=== PATIENT | male | born 1945 | race Caucasian/White ===

== ENCOUNTER 2019-08-18 20:09 | Inpatient (IN) | payer MEDICARE, OTHER ==
[~2019-08-18] VITALS: Ht 165.1 cm; Wt 88.9 kg
--- NOTE | 2019-08-18 21:08 | NUR ---
PATIENT CAME FROM [facility] TOWARDS STAFF. PER REPORT, PATIENT WAS PULLING STAFF'S HAIR, SCRATCHING, AND PUNCHING STAFF. PT IS ABLE TO SPEAK, BUT DIFFICULT TO UNDERSTAND. ALERT AND ORIENTED. NO SOB. BREATHING EVENLY AND UNLABORED.
--- NOTE | 2019-08-18 21:09 | NUR ---
PATIENT INTAKE COORDINATOR AT BEDSIDE FOR BLOOD COLLECTION
--- NOTE | 2019-08-18 21:13 | NUR ---
PT UNABLE TO PROVIDE URINE AT THIS TIME.
[2019-08-18 21:21] LABS: BASOPHILS # (AUTO) 0.2 /CMM (0.0-0.2); BASOPHILS % (AUTO) 1.2 % (0.0-2.0); EOSINOPHILS % (AUTO) 1.5 % (0.0-6.0); HEMATOCRIT 40 % (39-51); HEMOGLOBIN 13.1 g/dL (13.5-17.5); LYMPHOCYTES % (AUTO) 23.4 % (20.0-44.0); MEAN CORPUSCULAR HGB CONC 33 g/dl (31.0-36.0); MEAN CORPUSCULAR VOLUME 92 fL (80-96); MONOCYTES # (AUTO) 0.8 /CMM (0.1-1.30); MONOCYTES % (AUTO) 6.2 % (2.0-12.0); NEUTROPHILS # (AUTO) 8.6 /CMM (1.8-8.9); NEUTROPHILS % (AUTO) 67.7 % (43.0-81.0); PLATELET COUNT (AUTO) 355 /CMM (150-450); RED BLOOD CELL COUNT(AUTO) 4.29 MIL/uL (4.5-6.0); WHITE BLOOD COUNT (AUTO) 12.7 K/uL (4.3-11.0)
[2019-08-18 21:29] LABS: CALCIUM, SERUM 9.9 mg/dL (8.5-10.1); CARBON DIOXIDE 23 mmol/L (21-32); CHLORIDE 102 mmol/L (98-107); CREATININE 1.2 mg/dL (0.6-1.3); GLUCOSE 190 mg/dL (74-106); SODIUM SERUM 137 mmol/L (136-145); UREA NITROGEN, BLOOD 26 mg/dL (7-18)
[2019-08-18 21:45] LABS: ALANINE AMINOTRANSFERASE 19 U/L (12-78); ALBUMIN 3.8 g/dL (3.4-5.0); ALCOHOL, BLOOD < 3 mg/dL (0-0); ALKALINE PHOSPHATASE 93 U/L (46-116); ASPARTATE AMINOTRANSFERASE 13 U/L (15-37); BILIRUBIN,DIRECT 0.1 mg/dL (0.0-0.2); BILIRUBIN,TOTAL 0.3 mg/dL (0.2-1.0); TOTAL PROTEIN, SERUM 8.1 g/dL (6.4-8.2)
[2019-08-18 21:48] LABS: ACETAMINOPHEN < 2 ug/ml (10-30); SALICYLATE 1.7 mg/dL (2.8-20.0)
[2019-08-18 22:00] LABS: APPEARANCE,URINE Clear (CLEAR); BILIRUBIN,URINE Negative (NEGATIVE); BLOOD, URINE Negative Ery/uL (NEGATIVE); COLOR,URINE Yellow (YELLOW); KETONES,URINE 15 (NEGATIVE); LEUKOCYTE ESTERASE ,URINE Negative (NEGATIVE); NITRITE, URINE Positive (NEGATIVE); PH,URINE 5.5 (5.0-8.0); PROTEIN,URINE 100 mg/dl (NEGATIVE); UGLUCOSE Negative (NEGATIVE); UROBILINOGEN,URINE 0.2 EU/dL (0.2)
[2019-08-18 22:05] LABS: BACTERIA,URINE Few /HPF (None Seen); RBC,URINE NONE SEEN /HPF (0-2); SQUAMOUS EPITHELIAL CELL,UR Few /HPF (None Seen); WBC,URINE 0-2 /HPF (0-3)
[2019-08-18] MEDS ORDERED: CEFTRIAXONE 1GM BAG (ER ONLY) 1 GM/50 ML PIGGYBACK IV ONE (22:30)
--- NOTE | 2019-08-18 22:41 | NUR ---
ATTEMPTED MRSA SWAB ON PT W/ RN AND ADMITTING FOR TRANSLATION; PT REFUSED. DR BIANCHI
[2019-08-18] MEDS ORDERED: CEFTRIAXONE 1 G VIAL ONE (22:44)
[2019-08-18] MEDS ORDERED: LIDOCAINE /MPF 1% VIAL 5 ML VIAL ONE (22:44)
[2019-08-18] MEDS ORDERED: CEFTRIAXONE 1 G VIAL IM STA (22:57)
--- NOTE | 2019-08-18 23:05 | NUR ---
report given to Dave MEEKS for manny.
[2019-08-18] MEDS ORDERED: OMEG1CAP55 PO (23:08)
[2019-08-18] MEDS ORDERED: FOLI0.8T2 PO (23:09)
[2019-08-18] MEDS ORDERED: LISI10TA5 PO (23:57)
[2019-08-18] MEDS ORDERED: INSU100I30 SQ (23:58)
[2019-08-18] MEDS ORDERED: MELA1TAB15 PO (23:59)
[2019-08-19] MEDS ORDERED: MAGNESIUM HYDROXIDE 30 ML UDC PO PRN
[2019-08-19] MEDS ORDERED: TEMAZEPAM 7.5 MG CAPSULE PO PRN
[2019-08-19] MEDS ORDERED: ACETAMINOPHEN 325 MG TABLET PO PRN
[2019-08-19] MEDS ORDERED: MAG HYDROX/AL HYDROX/SIMETH 30 ML UDC PO PRN
[2019-08-19] MEDS ORDERED: DEXT15DR6 OP
[2019-08-19] MEDS ORDERED: clonazePAM 0.5 MG TABLET PO PRN
[2019-08-19] MEDS ORDERED: TYL2T MC (00:13)
[2019-08-19] MEDS ORDERED: CYAN100071 PO (00:27)
[2019-08-19] MEDS ORDERED: BLOOD SUGAR DIAGNOSTIC 1 EACH STRIP IN ONE (00:30)
[2019-08-19] MEDS ORDERED: POLY17PO4 PO (00:34)
[2019-08-19] MEDS ORDERED: DOCU100C36 PO (00:35)
[2019-08-19] MEDS ORDERED: METF-442 PO (00:40)
[2019-08-19] MEDS ORDERED: INSULIN REGULAR, HUMAN 100 UNIT/ML 3 ML VIAL SQ PRN (01:00)
[2019-08-19] MEDS ORDERED: DEXTROSE 50%-WATER 50 ML DISP.SYRIN IV PRN (01:00)
--- NOTE | 2019-08-19 04:51 | NUR ---
ADMITTED THIS 74 YEARS OLD MALE FROM [facility] PATIENT IS ALERT, ORIENTED, X 2 AMBULATORY WITH ASSIST DENIES ANY PAIN OR DISCOMFORT AT THIS TIME, PATIENT WAS PLACED ON 5150 HOLD DUE TO DANGERS TO OTHERS, SCRATCHING THE STAFF AND PULLING THE HAIR OF THE STAFF, PATIENT IS UNDER CARE OF DR. LOPEZ SKIN ASSESSMENT IS DONE SKIN IS INTACT NO OPEN SKIN NOTED, PATIENT REFUSED TO SIGN OF CONSENT PAPER ADVISEMENT EXPLAIN AND SERVE TO THE PATIENT WITH HOSPITAL HANDBOOK, BED ALARM IS ON, SIDE RAILS ARE UP FOR THE SAFETY WILL CONTINUES TO MONITOR THE PATIENT FOR SAFETY AND FALL.
[2019-08-19 07:21] LABS: BASOPHILS % (AUTO) 0.4 % (0.0-2.0); EOSINOPHILS % (AUTO) 2.4 % (0.0-6.0); HEMATOCRIT 40 % (39-51); HEMOGLOBIN 13.3 g/dL (13.5-17.5); LYMPHOCYTES # (AUTO) 2.9 /CMM (0.8-4.8); LYMPHOCYTES % (AUTO) 29.4 % (20.0-44.0); MEAN CORPUSCULAR HGB CONC 34 g/dl (31.0-36.0); MEAN CORPUSCULAR VOLUME 91 fL (80-96); MONOCYTES # (AUTO) 0.6 /CMM (0.1-1.30); MONOCYTES % (AUTO) 6.4 % (2.0-12.0); NEUTROPHILS % (AUTO) 61.4 % (43.0-81.0); PLATELET COUNT (AUTO) 339 /CMM (150-450); RED BLOOD CELL COUNT(AUTO) 4.32 MIL/uL (4.5-6.0); WHITE BLOOD COUNT (AUTO) 9.8 K/uL (4.3-11.0)
[2019-08-19 07:26] LABS: CALCIUM, SERUM 10.1 mg/dL (8.5-10.1); CREATININE 1.1 mg/dL (0.6-1.3); POTASSIUM 3.8 mmol/L (3.5-5.1)
[2019-08-19] MEDS: BLOOD SUGAR DIAGNOSTIC 1 EACH STRIP IN SCH ×2 (07:59→12:04)
[2019-08-19 08:00] VITALS: BP 116/73
--- NOTE | 2019-08-19 08:44 | NUR ---
FACILITY CONTACT: SHEA contacted Mireya retail coordinator at [facility] Address: [place] [address] who states pt will be returning to the facility.
[2019-08-19] MEDS: CEPHALEXIN MONOHYDRATE 250 MG CAPSULE PO SCH ×2 (08:58→12:35)
[2019-08-19] MEDS ORDERED: METFORMIN 500 MG TABLET PO SCH (09:00)
[2019-08-19] MEDS ORDERED: DOCUSATE SODIUM 100 MG CAPSULE PO SCH (09:00)
[2019-08-19] MEDS ORDERED: LISINOPRIL (10MG) 10 MG TABLET PO SCH (09:00)
--- NOTE | 2019-08-19 10:48 | NUR ---
Initial Family Contact: SW contacted the patients sister: Oxana Power [phone] who stated that she is the pt.s responsible alliance party. Per Oxana, she has taken care of the pt. since the passing of her parents as patient was diagnosed with a Cognitive Delay at an early age. Per Oxana she does have Conservatorship. Oxana communicated that she may be unable to visit the pt. as she resides in [place] and doesn't have a vehicle. Mirna VALDIVIA will be available as needed.
--- NOTE | 2019-08-19 10:51 | NUR ---
Initial Discharge Plan: The pt. currently resides at [facility] [[address] [place], [place] ;[phone]]. SHEA called and spoke to the patient's responsible constitution party/sister, Oxana Power [phone] to discuss discharge planning. Per Oxana, she would like for the pt. to return to [facility] when ready for discharge. SHEA called [facility] and spoke to Kristina who stated that the pt. is welcome back to their facility when pt. is back at baseline. SHEA Bradley will continue to collaborate with Interdisciplinary Team to ensure safe and proper discharge planning.
[2019-08-19] MEDS ORDERED: QUETIAPINE FUMARATE 25 MG TABLET PO SCH (11:00)
--- NOTE | 2019-08-19 12:35 | NUR ---
PATIENT REFUSED ALL 1300 MEDS
[2019-08-19] MEDS ORDERED: DIVALPROEX SODIUM 125 MG CAP.SPRINK PO SCH (13:00)
--- NOTE | 2019-08-19 13:27 | NUR ---
PATIENT REFUSED LUNCH, INSULIN HELD
[2019-08-19 14:31] VITALS: BP 64/46
[2019-08-19 14:35] VITALS: BP 60/45
[2019-08-19] MEDS ORDERED: IV NS 0.9% 1,000 ML BAG IV STA ×2 (14:58→15:35)
--- NOTE | 2019-08-19 15:22 | NUR ---
PATIENT WAS SEEN IN [facility] THAT HAD A VOMITING EPISODE. APPROACHED PATIENT, EMESIS LOOKED AND SMELLED LIKE COFFEE. PATIENT WAS COLD AND CLAMMY AND STATED HE WAS DIZZY. SENT PATIENT TO ROOM. CHECKED HIS BS, WNL. CHECKED PATIENT'S VS AND BP L ARM 64/46 R ARM 60/45, ALOC, O2SAT 89% TEMP 98.0. INFORMED DR BRAGA WITH ORDERS FOR O2 VIA NASAL CANNULA AND BOLUS IVF X1 FOR HYPOTENSION. STARTED IV LINE. PATIENT HAD ALOC, RAPID RESPONSE CONTACTED. PATIENT'S BP REMAINED LOW. IVF HUNG ON BOLUS. PATIENT WAS AROUSABLE TO VERBAL STIMULI. DR BRAGA ARRIVED WITH ORDERS TO TRANSFER PATIENT TO MEDICAL FLOOR FOR EVALUATION WITH NEW ORDERS FOR STAT CXR AND LABS. CONTINUING TO MONITOR PATIENT. Addendum: 08/19/19 at 1538 by KIET SOARES RN IVF AT 100CC/HR ORDERED Addendum: 08/19/19 at 1547 by KIET SOARES RN CONTACTED HOA SETH [phone] C/O SHAWN. CALLED X3 TO SEND POLST D/T PATIENT BEING A DNR AND NO DOCUMENTATION ON FILE UPON TRANSFER. AWAITING FAX.
[2019-08-19 15:42] LABS: BASOPHILS % (AUTO) 0.4 % (0.0-2.0); HEMATOCRIT 36 % (39-51); LYMPHOCYTES # (AUTO) 1.5 /CMM (0.8-4.8); LYMPHOCYTES % (AUTO) 14.4 % (20.0-44.0); MEAN CORPUSCULAR HGB CONC 34 g/dl (31.0-36.0); MEAN CORPUSCULAR VOLUME 91 fL (80-96); MONOCYTES # (AUTO) 0.4 /CMM (0.1-1.30); MONOCYTES % (AUTO) 3.5 % (2.0-12.0); NEUTROPHILS # (AUTO) 8.7 /CMM (1.8-8.9); NEUTROPHILS % (AUTO) 80.7 % (43.0-81.0); PLATELET COUNT (AUTO) 325 /CMM (150-450); RED BLOOD CELL COUNT(AUTO) 3.93 MIL/uL (4.5-6.0); WHITE BLOOD COUNT (AUTO) 10.7 K/uL (4.3-11.0)
[2019-08-19 15:46] VITALS: BP 99/55
[2019-08-19 15:54] LABS: ALANINE AMINOTRANSFERASE 22 U/L (12-78); ALBUMIN 3.5 g/dL (3.4-5.0); ALKALINE PHOSPHATASE 82 U/L (46-116); ASPARTATE AMINOTRANSFERASE 14 U/L (15-37); BILIRUBIN,TOTAL 0.4 mg/dL (0.2-1.0); CALCIUM, SERUM 9.2 mg/dL (8.5-10.1); CARBON DIOXIDE 25 mmol/L (21-32); CHLORIDE 103 mmol/L (98-107); CREATININE 1.6 mg/dL (0.6-1.3); GLUCOSE 155 mg/dL (74-106); SODIUM SERUM 142 mmol/L (136-145); TOTAL PROTEIN, SERUM 7.2 g/dL (6.4-8.2); UREA NITROGEN, BLOOD 23 mg/dL (7-18)
[2019-08-19 16:33] VITALS: BP 64/46
--- NOTE | 2019-08-19 16:33 | NUR ---
RN NOTES Received patient from GPS, report from Warren. 2 IV line with patient. No sob noted. Bed at the lowest setting, call light within reach, side rails up x2.
--- NOTE | 2019-08-19 16:41 | NUR ---
WRAPPER LEAF INSPECTOR NOTE: PATIENT IS A 74 YEAR OLD FEMALE DISCHARGED TO TELEMETRY FOR FURTHER OBSERVATION D/T CRITICAL HIGH LACTIC ACID VALUES. PATIENT WAS HYPOTENSIVE, LOW O2 SAT, MOMENTARY ALOC, EPISODE OF EMESIS, COLD, CLAMMY AND DIZZY. PATIENT DENIES SI/HI VAH AT THE TIME OF DISCHARGE. SKIN INTACT. RETURNED PERSONAL BELONGINGS TO PATIENT. EXPLAINED TO PATIENT THAT HE IS BEING TRANSFERRED ON A DIFFERENT FLOOR. MEDICATIONS RECONCILED WITH DR LOPEZ AND DR BRAGA ALONG WITH PSYCHIATRIC DISCHARGE ORDERS. DISCHARGE PAPERWORK SIGNED. FOR FOLLOW UP WITH PSYCHIATRIST AND WHARFINGER CHIEF WITHIN 1 WEEK ONCE DC FROM HOSPITAL. PATIENT TRANSFERRED TO TELE VIA HOSPITAL BED AT 1615.
[2019-08-19] MEDS ORDERED: CEPH250C PO (16:53)
[2019-08-19] MEDS ORDERED: CLON0.5T4 PO (16:53)
[2019-08-19] MEDS ORDERED: TEMA15CA PO (16:53)
[2019-08-19] MEDS ORDERED: QUET25TA PO (16:53)
[2019-08-19] MEDS ORDERED: INSU100V28 IJ (16:53)
[2019-08-19] MEDS ORDERED: MAG355OR18 PO (16:53)
[2019-08-19] MEDS ORDERED: DIVA125C2 PO (16:53)
[2019-08-19] MEDS ORDERED: INSULIN GLARGINE, 100 UNIT/ML CARTRIDGE SQ SCH (17:00)
--- NOTE | 2019-08-19 17:04 | NUR ---
GPS/RN PT'S SISTER JOSE ESPINAL [phone] NOTIFIED OF TRANSFER TO [facility]
== END 2019-08-19 16:15 | disposition short-term general hospital (02) | DRG 885 ==
LOC: ER 20:17 → GPS 22:43
PROVIDERS: ADMIT Psychiatry & Neurology Psychiatry; ATTEND Nurse Practitioner Acute Care
DX: F29 Unspecified psychosis not due to a substance or known physiological condition (principal); N17.0 Acute kidney failure with tubular necrosis; A41.9 Sepsis, unspecified organism; G93.41 Metabolic encephalopathy; J15.6 Pneumonia due to other Gram-negative bacteria; E87.2 Acidosis; N39.0 Urinary tract infection, site not specified; F41.9 Anxiety disorder, unspecified; E11.22 Type 2 diabetes mellitus with diabetic chronic kidney disease; E86.0 Dehydration; E78.5 Hyperlipidemia, unspecified; N18.2 Chronic kidney disease, stage 2 (mild); I12.9 Hypertensive chronic kidney disease with stage 1 through stage 4 chronic kidney disease, or unspecified chronic kidney disease; Z79.84 Long term (current) use of oral hypoglycemic drugs
CPT/HCPCS: 36415; 71045-TC; 80048-TC; 80053-TC; 80061-TC; 80076-TC; 80305; 81000-TC; 82962-TC; 83605-TC; 85025-TC; 87081-TC; 97116-TC; 97530-TC; G0480; J0696; J1815; J3490; J7030

== ENCOUNTER 2019-08-19 15:41 | Inpatient (IN) | payer MEDICARE, OTHER ==
[~2019-08-19] VITALS: Ht 165.1 cm; Wt 88.9 kg
[~2019-08-19 15:41] MED LIST: CYAN100071 PO; DEXT15DR6 OP; DOCU100C36 PO; FOLI0.8T2 PO; INSU100I30 SQ; LISI10TA5 PO; MELA1TAB15 PO; METF-442 PO; OMEG1CAP55 PO; POLY17PO4 PO; TYL2T MC
[2019-08-19] MEDS ORDERED: IV NS 0.9% 1,000 ML BAG IV ONE (16:30)
[2019-08-19] MEDS ORDERED: ACETAMINOPHEN 325 MG TABLET PO PRN (16:30)
[2019-08-19] MEDS ORDERED: IV NS 0.9% 1,000 ML IV PRN (16:30)
[2019-08-19] MEDS ORDERED: DEXTROSE 50%-WATER 50 ML DISP.SYRIN IV PRN (16:30)
[2019-08-19] MEDS ORDERED: ONDANSETRON HCL/PF 4 MG/2 ML VIAL IVP PRN (16:30)
[2019-08-19] MEDS ORDERED: ZOLPIDEM TARTRATE 5 MG TABLET PO PRN (16:30)
[2019-08-19] MEDS ORDERED: HYDROCODONE/APAP 5/325MG 1 EACH TABLET PO PRN (16:30)
--- NOTE | 2019-08-19 16:30 | NUR ---
rn notes patient received patient at this time from GPS. Report received from alma. IV lines remains intact. Bed at the lowest setting, call light within reach, side rauils up x2.
[2019-08-19] MEDS ORDERED: CLON0.5T4 PO (16:53)
[2019-08-19] MEDS ORDERED: MAG355OR18 PO (16:53)
[2019-08-19] MEDS ORDERED: DIVA125C2 PO (16:53)
[2019-08-19] MEDS ORDERED: QUET25TA PO (16:53)
[2019-08-19] MEDS ORDERED: TEMA15CA PO (16:53)
[2019-08-19] MEDS ORDERED: CEPH250C PO (16:53)
[2019-08-19] MEDS ORDERED: INSU100V28 IJ (16:53)
[2019-08-19] MEDS ORDERED: POLYVINYL ALCOHOL 15 ML BOTTLE EACHEYE PRN (17:00)
[2019-08-19] MEDS ORDERED: Medication Not On Formulary EA (Omega-3 Acid Ethyl Esters (Lovaza) 1 GM) PO SCH (17:00)
[2019-08-19] MEDS ORDERED: LEVOFLOXACIN 500 MG /D5W 100ML 500 MG in PREMIX 1 EA IV ONE (17:00)
[2019-08-19] MEDS: ACETAMINOPHEN 325 MG TABLET MC SCH (17:00)
[2019-08-19] MEDS ORDERED: Medication Not On Formulary EA (Melatonin/Pyridoxine Hcl (Melatonin 1 Mg Tablet) 1 EACH) PO SCH (18:00)
[2019-08-19] MEDS ORDERED: INSULIN GLARGINE, 100 UNIT/ML CARTRIDGE SQ SCH (18:00)
[2019-08-19] MEDS: BLOOD SUGAR DIAGNOSTIC 1 EACH STRIP IN SCH ×2 (18:08→22:00)
--- NOTE | 2019-08-19 18:49 | NUR ---
RN CLOSING NOTES Patient remains on room air, a/o x1 at this time. Refused telemetry placement, and refused changing at this time. IV NS @ 75 ml per hour. Refused ultra sound as well. CCHO diet. Blood sugar okay at this time. Bed at the lowest setting, call light within reach, side rails x2. Will give report to NOC RN for CJ bedside.
--- NOTE | 2019-08-19 19:30 | NUR ---
RECEIVED PATIENT ASLEEP AROUSABLE EASILY, ANSWERS WHEN CALLED HIS NAME AND OPENED HIS EYES. RESTING IN BED. ELEVATED HOB. CALL LIGHT WITHIN REACH. PLACED BED IN LOWEST AND LOCKED POSITION. TURNED BED ALARM ON. 3 SIDERAILS UP. NO COMPLAIN OF PAIN. NOT IN RESPIRATORY DISTRESS. ROBYN NEWBERRY REP[ORTED THAT PATIENT REFUSED VITALS TO BE TAKEN AND TO PLACE THE MONITOR FOR TELE. IVF RUNNING.
--- NOTE | 2019-08-19 20:21 | NUR ---
WOOL MERCHANT TARIQ TRIED TO TALK NEPALI TO THE PATIENT THE IMPORTANCE OF THE TELE MONITOR. PATIENT STILL REFUSED. WILL INFORM .
--- NOTE | 2019-08-19 23:02 | NUR ---
BLOOD SUGAR FINGERSTICK=81, NO INSULIN GIVEN.
--- NOTE | 2019-08-19 23:02 | NUR ---
OFFERED SOME SNACKS, REFUSED.
[2019-08-20] VITALS: BP 110/64
[2019-08-20 04:00] VITALS: BP 123/54
[2019-08-20 04:47] VITALS: BP 123/54
[2019-08-20] MEDS: BLOOD SUGAR DIAGNOSTIC 1 EACH STRIP IN SCH ×4 (06:52→22:00)
--- NOTE | 2019-08-20 06:52 | NUR ---
BLOOD SUGAR=81, NO INSULIN GIVEN.
[2019-08-20] MEDS: PANTOPRAZOLE 40 MG TABLET.DR PO SCH (07:30)
--- NOTE | 2019-08-20 07:46 | NUR ---
RN OPENING NOTES Patient received on room air, no sob noted, patient a/o x1 and refuses pretty much everything. CCHO diet, and blood sugar is normal. IV line not present at this time and will ask patient. MRSA test awaiting for patient to agree to it. Bed at the lowest setting, call light within reach, side rails up x2.
[2019-08-20 08:00] VITALS: BP 115/65
[2019-08-20] MEDS: FOLIC ACID 1 MG TABLET PO SCH (09:00)
[2019-08-20] MEDS: ASCORBIC ACID 500 MG TABLET PO SCH (09:00)
[2019-08-20] MEDS: ACETAMINOPHEN 325 MG TABLET MC SCH ×2 (09:00→17:00)
[2019-08-20] MEDS: POLYETHYLENE GLYCOL 3350 17 GM POWD.PACK PO SCH (09:00)
[2019-08-20] MEDS: CYANOCOBALAMIN 500 MCG TABLET PO SCH (09:00)
[2019-08-20] MEDS ORDERED: METFORMIN 500 MG TABLET PO SCH ×2 (09:00)
[2019-08-20] MEDS: DOCUSATE SODIUM 100 MG CAPSULE PO SCH (09:00)
--- NOTE | 2019-08-20 10:27 | NUR ---
PATIENT REFUSED AN ECHOCARDIOGRAM TEST. ADVISED ATTENDING RN.
[2019-08-20] MEDS: INSULIN REGULAR, HUMAN 100 UNIT/ML 3 ML VIAL SQ PRN (12:22)
[2019-08-20 16:00] VITALS: BP 143/76
[2019-08-20] MEDS ORDERED: LEVOFLOXACIN 250 MG /D5W 50 ML 250 MG in PREMIX 1 EA IV SCH (17:00)
--- NOTE | 2019-08-20 17:25 | NUR ---
rn notes patient refusing everything today. blood draws, IV fluid and blood glucose checks. Asked patient in Libyan as well and stated that he knows they have to be done but he does not want them.
--- NOTE | 2019-08-20 18:10 | NUR ---
rn closing notes patient remains on room air, no sob noted, patient ambulates by himself most of the time. Refuses medications, blood sugar checks, and IV antibiotics. Benefits explained to patient via slovak and states that he knows it is good for him but he rather not take them, would not elaborate more. Bed at the lowest setting, call light within reach, side rails up x2. Will give report to NOC RN for CJ bedside.
--- NOTE | 2019-08-20 19:30 | NUR ---
MS RN OPENING NOTES PATIENT AWAKE IN BED UPON ARRIVAL. A/O X1. PRIMARY LANGUAGE IS YI. ON ROOM AIR. NO S/S OF ACUTE RESPIRATORY DISTRESS OR PAIN AT THIS TIME. IV PRESENT ON LEFT HAND, SIZE 24, INTACT & PATENT, HEP LOCKED. BED LOCKED, ALARM ON, SIDE RAILS X2, CALL LIGHT WITHIN REACH. WILL CONTINUE TO MONITOR.
[2019-08-20 20:00] VITALS: BP 133/78
--- NOTE | 2019-08-20 22:00 | NUR ---
MS RN NOTES PATIENT REFUSED BLOOD GLUCOSE CHECK
--- NOTE | 2019-08-21 06:45 | NUR ---
MS NOTES PATIENT REFUSED LAB DRAW
[2019-08-21] MEDS: BLOOD SUGAR DIAGNOSTIC 1 EACH STRIP IN SCH ×4 (07:05→21:38)
--- NOTE | 2019-08-21 07:07 | NUR ---
MS RN CLOSING NOTES PATIENT SLEEPING IN BED. IN STABLE CONDITION. A/O X 1. ON ROOM AIR. NO S/S OF ACUTE RESPIRATORY DISTRESS AND PAIN. IV PRESENT ON RIGHT HAND, SIZE 24, INTACT & PATENT, HEP LOCKED. IV ON RIGHT AC, SIZE 20, INTACT & PATENT, HEP LOCKED. BED LOCKED, ALARM ON, SIDE RAILS X2, CALL LIGHT WITHIN REACH. WILL ENDORSE TO DAYSHIFT NURSE TO FOLLOW PLAN OF CARE.
--- NOTE | 2019-08-21 07:24 | NUR ---
MS RN OPENING NOTES RECEIVED PATIENT IN ROOM SITTING ON THE SIDE OF THE BED. A/O X 1. ON ROOM AIR. NO S/S OF DISTRESS NOTED AT THIS TIME. IV ACCESS ON RIGHT HAND #24, INTACT & PATENT, HEP LOCKED. IV ON RIGHT AC, #20, INTACT & PATENT, HEP LOCKED. PER SOCIAL SERVICE AGENCY DIRECTOR NURSE, PATIENT NON- COMPLIANT WITH POC. SAFETY MEASURES IN PLACE, BED LOCKED, ALARM ON, SIDE RAILS X2, CALL LIGHT WITHIN REACH. ANA CONTINUE TO MONITOR.
[2019-08-21] MEDS: PANTOPRAZOLE 40 MG TABLET.DR PO SCH (07:30)
[2019-08-21 08:00] VITALS: BP 143/74
[2019-08-21] MEDS: DOCUSATE SODIUM 100 MG CAPSULE PO SCH (09:00)
[2019-08-21] MEDS: CYANOCOBALAMIN 500 MCG TABLET PO SCH (09:00)
[2019-08-21] MEDS: FOLIC ACID 1 MG TABLET PO SCH (09:00)
[2019-08-21] MEDS: ACETAMINOPHEN 325 MG TABLET MC SCH ×2 (09:00→16:41)
[2019-08-21] MEDS: ASCORBIC ACID 500 MG TABLET PO SCH (09:00)
[2019-08-21] MEDS: POLYETHYLENE GLYCOL 3350 17 GM POWD.PACK PO SCH (09:00)
[2019-08-21 10:30] LABS: BASOPHILS # (AUTO) 0.1 /CMM (0.0-0.2); BASOPHILS % (AUTO) 1.1 % (0.0-2.0); EOSINOPHILS % (AUTO) 1.8 % (0.0-6.0); HEMATOCRIT 39 % (39-51); HEMOGLOBIN 12.9 g/dL (13.5-17.5); LYMPHOCYTES # (AUTO) 1.7 /CMM (0.8-4.8); LYMPHOCYTES % (AUTO) 22.2 % (20.0-44.0); MEAN CORPUSCULAR HGB CONC 33 g/dl (31.0-36.0); MEAN CORPUSCULAR VOLUME 91 fL (80-96); MONOCYTES # (AUTO) 0.4 /CMM (0.1-1.30); MONOCYTES % (AUTO) 5.6 % (2.0-12.0); NEUTROPHILS # (AUTO) 5.3 /CMM (1.8-8.9); NEUTROPHILS % (AUTO) 69.3 % (43.0-81.0); PLATELET COUNT (AUTO) 340 /CMM (150-450); RED BLOOD CELL COUNT(AUTO) 4.25 MIL/uL (4.5-6.0); WHITE BLOOD COUNT (AUTO) 7.6 K/uL (4.3-11.0)
[2019-08-21 10:48] LABS: ALBUMIN 3.8 g/dL (3.4-5.0); BILIRUBIN,TOTAL 0.4 mg/dL (0.2-1.0); CALCIUM, SERUM 9.3 mg/dL (8.5-10.1); CREATININE 1.3 mg/dL (0.6-1.3); MAGNESIUM 1.8 mg/dL (1.8-2.4); PHOSPHORUS 2.6 mg/dL (2.5-4.9); POTASSIUM 3.6 mmol/L (3.5-5.1)
[2019-08-21] MEDS: INSULIN REGULAR, HUMAN 100 UNIT/ML 3 ML VIAL SQ PRN ×2 (11:37→16:50)
--- NOTE | 2019-08-21 12:00 | NUR ---
RN NOTES 11:55 - RN HEARD A NOISE, CHECKED THE ROOM AND FOUND THE PATIENT ON THE FLOOR WHILE THE EXECUTIVE COMMUNICATIONS MANAGER IS HOLDING THE PATIENT. HELPED THE PATIENT TO SIT ON THE BED. V/S CHECKED AND IT WAS STABLE. HEAD TO TOE ASSESSMENT WAS DONE. NO BRUISES OR REDNESS NOTED. NO COMPLAINED OF PAIN, NO SIGNS OF DISTRESS NOTED. MD AND CHARGE NURSE ON UNIT AND MADE AWARE OF THE INCIDENT. PER EXECUTIVE COMMUNICATIONS MANAGER PATIENT IS SITTING ON THE CHAIR AND TRIED TO GET UP AND WHILE WALKING TO HIS BED, TRIPPED AND FELL ON HIS BUTTOCKS AND ROLLED ON HIS BACK BUT THE EXECUTIVE COMMUNICATIONS MANAGER WAS ABLE TO CATCH THE PATIENTS HEAD. WILL CONTINUE TO MONITOR.
[2019-08-21] MEDS: LEVOFLOXACIN (500MG) 500 MG TABLET PO SCH (12:46)
--- NOTE | 2019-08-21 18:32 | NUR ---
MS RN CLOSING NOTES PATIENT IN ROOM SITTING ON THE SIDE OF THE BED. A/O X 1. SITTER ON BEDSIDE. S/P FALL @11:50 IN THE MORNING. NO COMPLAINED OF PAIN OR DISCOMFORT NOTED. SAFETY MEASURES IN PLACE, BED LOCKED, ALARM ON, SIDE RAILS X2, CALL LIGHT WITHIN REACH. WILL CONTINUE TO MONITOR. Addendum: 08/21/19 at 1835 by NASH PRITCHETT RN MS RN CLOSING NOTES PATIENT IN ROOM SITTING ON THE SIDE OF THE BED. A/O X 1. SITTER ON BEDSIDE. S/P FALL @11:50 IN THE MORNING. NO COMPLAINED OF PAIN OR DISCOMFORT NOTED. SAFETY MEASURES IN PLACE, BED LOCKED, ALARM ON, SIDE RAILS X2, CALL LIGHT WITHIN REACH. WILL ENDORSE TO TEENAGE BABYSITTER NURSE FOR CJ.
--- NOTE | 2019-08-21 19:48 | NUR ---
MS RN OPENING NOTES PATIENT RESTING IN BED COMFORTABLY; SITTER AT BED SIDE; PATIENT A/O X1; PATIENT BREATHING EVEN AND UNLABORED; NO S/S OF ACUTE RESPIRATORY DISTRESS NOTED; BED LOCKED IN LOW POSITION; SIDE RAILS X2; CALL LIGHT WITHIN REACH; WILL CONTINUE TO MONITOR
[2019-08-21 20:00] VITALS: BP 122/70
[2019-08-22] MEDS: INSULIN REGULAR, HUMAN 100 UNIT/ML 3 ML VIAL SQ PRN (06:18)
--- NOTE | 2019-08-22 06:50 | NUR ---
MS RN CLOSING NOTES PATIENT AWAKE, A/O X1; SITTER AT BEDSIDE; PATIENT DENIES PAIN; BREATHING EVEN AND UNLABORED; PATIENT TOLERATING ROOM AIR WELL; NO S/S OF ACUTE RESPIRATORY DISTRESS NOTED; ALL NEEDS ATTENDED TO; BED LOCKED IN LOW POSITION; SAFETY PRECAUTIONS IN PLACE; BILATERAL UPPER SIDE RAILS X2; CALL LIGHT WITHIN REACH; WILL ENDORSE CONTINUITY OF CARE TO ONCOMING NURSE.
[2019-08-22] MEDS: BLOOD SUGAR DIAGNOSTIC 1 EACH STRIP IN SCH (07:35)
[2019-08-22] MEDS: PANTOPRAZOLE 40 MG TABLET.DR PO SCH (07:36)
[2019-08-22 08:00] VITALS: BP 148/52
--- NOTE | 2019-08-22 08:00 | NUR ---
RN NOTES RECEIVED PATIENT IN THE ROOM SITTING IN THE CHAIR. PATIENT A/O X1/2, WITH CONFUSION, AND LAO SPEAKER, REDIRECTABLE. PATIENT HAS NO ACUTE RESPIRATORY DISTRESS, V/S STABLE, ADMINISTERED SCHEDULED MEDICATION. PATIENT HAS BEDSIDE 1:1 SITTER FOR SAFETY. PATIENT INCONTINENT USING DIAPER, ALSO NEED MACHINIST FIRST CLASS FOR FALL PREVENTION, IV ACCESS ON RIGHT UPPER ARM INTACT, CALL LIGHT WITHIN TO REACH, CONTINUED MONITORING
[2019-08-22] MEDS: DOCUSATE SODIUM 100 MG CAPSULE PO SCH (09:33)
[2019-08-22] MEDS: FOLIC ACID 1 MG TABLET PO SCH (09:33)
[2019-08-22] MEDS: POLYETHYLENE GLYCOL 3350 17 GM POWD.PACK PO SCH (09:33)
[2019-08-22] MEDS: CYANOCOBALAMIN 500 MCG TABLET PO SCH (09:33)
[2019-08-22] MEDS: ASCORBIC ACID 500 MG TABLET PO SCH (09:33)
[2019-08-22] MEDS: ACETAMINOPHEN 325 MG TABLET MC SCH (09:34)
[2019-08-22] MEDS ORDERED: LEVO500T2 PO (10:01)
--- NOTE | 2019-08-22 11:21 | NUR ---
RN NOTES PATIENT WILL DISCHARGE SNF AT THIS TIME PER HOSPITALIST DNP CATLAN ORDERS. , BROTHER WILL SPICE MILLER HAMMER MILL PATIENT TO THE SNF.
[2019-08-22] MEDS: LEVOFLOXACIN (500MG) 500 MG TABLET PO SCH (11:27)
--- NOTE | 2019-08-22 11:50 | NUR ---
DIRECT SUPPORT PROFESSIONAL NOTES PATIENT DISCHARGE AT THIS TIME GOING BACK TO THE SNF, LOCAL COMPANY INTERMODAL TRUCK DRIVER BY BROTHER. PATIENT HAS NO ACUTE RESPIRATORY DISTRESS, V/S STABLE, REFUSED PAIN. MED RECONCILIATION AND DISCHARGE ORDER REVIEWED AND EXPLAINED TO PATIENT, AND BROTHER. BROTHER VERBALIZED UNDERSTANDING. BELONGING WITH THE PATIENT. PATIENT SIGN PAPERWORK, WILL FOLLOW SNF ACCOUNTING SYSTEMS MANAGER. MEDICATION SIGNED ELECTRONICALLY BY LEWIS BRAGA. PAPERWORK HANDED TO THE BROTHER. ESCORTED PATIENT TO THE LOBBY FOR SAFETY USING WHEELCHAIR. PATIENT LOCAL COMPANY INTERMODAL TRUCK DRIVER BY BROTHER NAME JOSE PHONE # [phone].
== END 2019-08-22 11:45 | DRG 871 ==
LOC: TELE 15:41 → MED 08-20 10:07
PROVIDERS: ADMIT Nurse Practitioner Acute Care; ATTEND Nurse Practitioner Acute Care
DX: A41.9 Sepsis, unspecified organism (principal); J15.6 Pneumonia due to other Gram-negative bacteria; G93.41 Metabolic encephalopathy; N17.0 Acute kidney failure with tubular necrosis; E87.2 Acidosis; N39.0 Urinary tract infection, site not specified; E11.22 Type 2 diabetes mellitus with diabetic chronic kidney disease; E86.0 Dehydration; I12.9 Hypertensive chronic kidney disease with stage 1 through stage 4 chronic kidney disease, or unspecified chronic kidney disease; N18.2 Chronic kidney disease, stage 2 (mild); F79 Unspecified intellectual disabilities; Q03.9 Congenital hydrocephalus, unspecified; D64.9 Anemia, unspecified; E86.9 Volume depletion, unspecified; Z88.2 Allergy status to sulfonamides; D72.829 Elevated white blood cell count, unspecified; E78.5 Hyperlipidemia, unspecified
CPT/HCPCS: 36415; 76770-TC; 80053-TC; 82962-TC; 83605-TC; 83735-TC; 84100-TC; 84484-TC; 85025-TC; 93307-TC; A4216; G0378; J1815; J1956; J7030